=== PATIENT | male | born 1980 | race Caucasian/White ===

== ENCOUNTER 2017-01-04 07:15 | Day surgery (SDC) | payer BC ==
[~2017-01-04] VITALS: Ht 172.7 cm; Wt 63.4 kg
[2017-01-04] MEDS ORDERED: CYAN500T46 PO (07:59)
[2017-01-04] MEDS ORDERED: DIPH25CA6 PO (07:59)
[2017-01-04] MEDS ORDERED: [UNRECOGNIZED DRUG - OTHER] (07:59)
[2017-01-04] MEDS ORDERED: LORA0.5T PO (08:00)
[2017-01-04] MEDS ORDERED: GABA400C14 PO (08:00)
[2017-01-04] MEDS ORDERED: CHOL400T10 PO (08:04)
[2017-01-04] MEDS ORDERED: ACET500C3 PO (08:04)
[2017-01-04] MEDS ORDERED: TEST75GE TD (08:04)
[2017-01-04] MEDS ORDERED: ELVI1TAB3 PO (08:04)
[2017-01-04] MEDS ORDERED: TRAM100T27 PO (08:04)
[2017-01-04] MEDS ORDERED: BUPR150T6 PO (08:04)
[2017-01-04] MEDS ORDERED: NAPR275T83 PO (08:04)
[2017-01-04] MEDS ORDERED: CETRIZINE (08:04)
[2017-01-04] MEDS ORDERED: SULF500T5 PO (08:04)
[2017-01-04 08:06] VITALS: Ht 172.7 cm; Wt 63.4 kg
[2017-01-04] MEDS ORDERED: PROPOFOL 40 ML ONE (08:32)
[2017-01-04] MEDS ORDERED: MIDAZOLAM 1 MG/ML 2 ML INJ ONE (08:32)
[2017-01-04] MEDS ORDERED: LIDOCAINE 2% (SDV) 5 ML INJ ONE (08:32)
[2017-01-04 08:38] VITALS: BP 107/55; PULSE 58; RESP 16
[2017-01-04 10:06] VITALS: BP 96/58; PULSE 58; RESP 15
--- NOTE | 2017-01-04 10:35 | GILP ---
DATE OF PROCEDURE: PROCEDURE: Esophagogastroduodenoscopy. PREOPERATIVE DIAGNOSIS: The patient presenting with history of chronic vomiting, history of HIV, ru le out opportunistic infections, esophagitis, peptic ulcer disease. POSTOPERATIVE DIAGNOSES: 1. Diffuse erosive gastritis. 2. Minimal duodenitis. 3. Diffuse mild esophagitis. 4. Hiatal hernia. Biopsies were done as follows. DESCRIPTION OF PROCEDURE: After the informed written consent was obtained, the patient was asked to lie on the left lateral side. Intravenous anesthesia was given by anesthesiologist, Dr. Zaragoza. Whe n the patient became somnolent, the Olympus video upper endoscope was introduced into the oropharynx , then into the esophagus. Esophagus showed evidence of diffuse areas of erythema with no evidence of ulcers, no neoplasm. Random biopsies were obtained to rule out opportunistic infections. Small hiatal hernia was noted with reflux esophagitis. At this time, scope was advanced into the stomach. Stomach showed evidence of multiple erosions with no ulcers, no neoplasm. Three biopsies were obt ained from the antrum, the lesser curvature and the fundus to rule out H. pylori infection. Duodenu m showed evidence of duodenitis of milder degree in the bulb and the postbulbar area. Biopsies were done to rule out Giardia and celiac sprue. Scope at this time was withdrawn and no additional abno rmalities detected and the procedure was terminated. PLAN: Recommend proton pump inhibitor therapy. Dictated By: PRIYANKA HERNANDEZ MD NC/NTS Conf#: [id number] DID#: [id number] CC: Chuck Bowers MD;*End*
--- NOTE | 2017-01-04 10:52 | GILP ---
DATE OF PROCEDURE: PROCEDURE: Colonoscopy and biopsy. PREOPERATIVE DIAGNOSIS: Patient presenting with history of chronic diarrhea, history of Crohn's dis ease, rule out Crohn's disease, rule out ulcerative colitis. POSTOPERATIVE DIAGNOSIS: Proctitis of mild to moderate degree, the rest of the colon and terminal i leum appeared normal. Random biopsies were obtained. DESCRIPTION OF PROCEDURE: After informed written consent was obtained, the patient was asked to lie on the left lateral side. Intravenous anesthesia was given by anesthesiologist, Dr. Zaragoza. When th e patient became somnolent, Olympus video colonoscope was introduced into the rectum and scope was a dvanced all the way to the cecum and the terminal ileum. Terminal ileum appeared normal. Random bi opsies were obtained to rule out ileitis. Scope at this time was withdrawn from the terminal ileum and entire rest of the colon was examined thoroughly. No colitis noted. Random biopsies were obtai tereza and put in 2 bottles, one from the right colon, one from the left colon. The rectum showed evide nce of several areas of erythema with friability. Multiple biopsies were obtained to rule out infla mmatory bowel disease. Anal sphincter was found to be rather lax. Scope at this time was withdrawn and the procedure was terminated. PLAN: Recommend wait for the pathology report. Dictated By: YOUSUF HELLER/ROCÍO Conf#: [id number] DID#: [id number] CC: Chuck Bowers;*EndCC*
== END 2017-01-04 10:38 | disposition home or self-care (01) ==
LOC: GIL 07:15
PROVIDERS: ATTEND Internal Medicine Gastroenterology
DX: K29.60 Other gastritis without bleeding (principal); K20.8 Other esophagitis; K44.9 Diaphragmatic hernia without obstruction or gangrene; K62.89 Other specified diseases of anus and rectum; J44.9 Chronic obstructive pulmonary disease, unspecified; J45.909 Unspecified asthma, uncomplicated
CPT/HCPCS: 43239; 45380; 88305; 88312; J2250; Z7610

== ENCOUNTER 2017-01-06 18:03 | Emergency (ER) | payer BC ==
[~2017-01-06] VITALS: Ht 167.6 cm; Wt 64.0 kg
[~2017-01-06 18:03] MED LIST: ACET500C3 PO; BUPR150T6 PO; CETRIZINE; CHOL400T10 PO; CYAN500T46 PO; DIPH25CA6 PO; ELVI1TAB3 PO; GABA400C14 PO; LORA0.5T PO; NAPR275T83 PO; SULF500T5 PO; TEST75GE TD; TRAM100T27 PO; [UNRECOGNIZED DRUG - OTHER]
[2017-01-06 18:07] VITALS: Ht 167.6 cm; Wt 64.0 kg
[2017-01-06] MEDS ORDERED: KETOROLAC 30 MG INJ IM STA (20:24)
[2017-01-06] MEDS ORDERED: OXYC-279 PO ×2 (20:27→20:31)
[2017-01-06] MEDS ORDERED: LIDOCAINE/MYLANTA 40 ML BTL PO ONE (20:30)
--- NOTE | 2017-01-06 23:25 | ERD ---
ER Documentation Chief Complaint Date/Time DATE: 01/06/17 TIME: 23:22 Chief Complaint Complains of abdominal paun Hx of ulcerative colitis HPI 36-year-old man complains of abdominal pain similar multiple previous episodes. He states many years ago he was diagnosed with ulcerative colitis and recently with possible Crohn's disease. He underwent upper and lower endoscopy just a few days ago. He denies blood per rectum although states he has had continued diarrhea. He denies vomiting, no fevers or chills, no chest pain or shortness of breath. He has been using PPI therapy which was recently prescribed him but states he was not given any opioid or analgesic prescriptions. ROS All systems reviewed and are negative except as per history of present illness. Medications Home Meds Active Scripts Oxycodone HCl/Acetaminophen (Percocet 5-325 mg Tablet) 1 Each Tablet, 1 EACH PO TID for PAIN, #15 TAB Prov:ANTOINE MCNALLY MD 01/06/17 Oxycodone HCl/Acetaminophen (Percocet 5-325 mg Tablet) 1 Each Tablet, 1 EACH PO TID for PAIN, #15 TAB Prov:ANTOINE MCNALLY MD 01/06/17 Reported Medications Testosterone* (Androgel*) 1.62%-75gm Gel..rehabilitation engineer, 200 GM TD DAILY, EA 01/04/17 Tramadol Hcl* (Tramadol* ER) 100 Mg Tab.er.24h, 100 MG PO DAILY, #30 TAB 01/04/17 Sulfasalazine* (Sulfazine*) 500 Mg Tablet, 500 MG PO DAILY, TAB 01/04/17 Naproxen Sodium* (Naproxen*) 275 Mg Tablet, 275 MG PO Q8, TAB 01/04/17 Bupropion Hcl* (Bupropion XL*) 150 Mg Tab.er.24h, 150 MG PO DAILY, TAB.SA 01/04/17 Elviteg/Yesenia/Emtric/Tenofo Ala (Genvoya Tablet) 1 Each Tablet, 1 EACH PO, TAB 01/04/17 Cholecalciferol* (Vitamin D*) 400 Unit Tablet, 800 UNIT PO DAILY, TAB 01/04/17 Acetaminophen (Mapap) 500 Mg Capsule, 500 MG PO Q4H Y for PAIN, CAP 01/04/17 [Cetrizine] No Conflict Check 01/04/17 Lorazepam* (Lorazepam*) 0.5 Mg Tablet, 0.5 MG PO Q6 Y for ANXIETY, TAB 01/04/17 Gabapentin* (Gabapentin*) 400 Mg Capsule, 800 MG PO TID, #180 CAP 01/04/17 [Venlaxafine] No Conflict Check 01/04/17 Diphenhydramine Hcl* (Diphenhydramine Hcl*) 25 Mg Capsule, 25 MG PO Q6 Y for ITCHING, CAP 01/04/17 Cyanocobalamin* (Vitamin B12*) 500 Mcg Tab, 1000 MCG PO DAILY, TAB 01/04/17 Allergies Allergies: Coded Allergies: amoxicillin (Verified Allergy, Intermediate, 01/06/17) Uncoded Allergies: BEESTINGS (Allergy, Unknown, 01/06/17) PMhx/Soc Chronic abdominal pain, possible ulcerative colitis versus Crohn's disease, gastritis History of Surgery: Yes (LUNG WASHES X3, ELBOW SURGERY WITH METAL PINS) Anesthesia Reaction: No Hx Neurological Disorder: No Hx Respiratory Disorders: Yes (COPD, ASTHMA, EMPHESEMA) Hx Cardiac Disorders: Yes (HEART MURMUR) Hx Psychiatric Problems: Yes (ANXIETY, DEPRESSION) Hx Miscellaneous Medical Probl: Yes (HPV, HIV) Hx Alcohol Use: Yes (STOPPED IN MAR 2016) Hx Substance Use: Yes (MARIJUANA DAILY) Hx Tobacco Use: Yes (1 PACK WEEK) Smoking Status: Current some day smoker FmHx Family History: No diabetes Physical Exam Vitals Vital Signs Date Time Temp Pulse Resp B/P Pulse Ox O2 Delivery O2 Flow Rate FiO2 01/06/17 18:07 98.0 88 20 122/71 97 Physical Exam GENERAL: Well-developed, well-nourished, well-hydrated, in no apparent distress , looks nontoxic in appearance HEENT: Moist mucous membranes, pink conjunctiva, no cervical spine tenderness or step-off deformities, no goiter, no jaundice or icterus, extraocular movements intact without pain. No submandibular induration, and no pharyngeal erythema NEURO: Alert and oriented 3, cranial nerves II through XII intact bilaterally, pupils equal round reactive to light, no focal deficits or facial asymmetry, sensation intact distally Strength 5/5 in upper and lower extremities bilaterally CARDIAC: Regular rate and rhythm, no murmurs rubs or gallops LUNGS: Clear bilaterally no wheezing crackles or stridor ABDOMEN: Soft nontender, no guarding, no rigidity, no rebound, no psoas sign no obturator sign. Normoactive bowel sounds SKIN: Warm and dry to touch, no abrasions, contusions, or hematomas, no lacerations, no ecchymosis, no target lesions, and without ulcers EXTREMITIES: No clubbing cyanosis or edema, calves are bilaterally symmetrical, no Homans sign, no popliteal cord sign. Distal pulses equal and bilateral PSYCH: Normal affect without agitation or irritability Results 24 hrs Current Medications Medications (Trade) Dose Ordered Sig/Kal Route PRN Reason Start Time Stop Time Status Last Admin Dose Admin Ketorolac Tromethamine (Toradol) 30 mg ONCE STAT IM 01/06/17 20:24 01/06/17 20:25 DC 01/06/17 20:41 Miscellaneous Medication (Gi Cocktail (2)) 40 ml ONCE ONCE PO 01/06/17 20:30 01/06/17 20:31 DC 01/06/17 20:41 Procedures/MDM I reviewed the patient's recent GI reports, diagnosis was listed as proctitis, I told the patient to follow-up with his GI specialist for clarifying his diagnosis, it seems the patient is unsure about his official diagnosis. I administered Toradol 30 mg intramuscular injection and Maalox suspension 40 cc p.o. with good relief. I reviewed the patient's recent GI reports. Differential diagnoses considered, included but not limited to perforated bowel , bowel obstruction, appendicitis, cholecystitis, bowel obstruction, pyelonephritis, nephrolithiasis, cystitis, as well as metabolic, hematologic, and electrolyte abnormalities. As well as abscess, cellulitis, fractures, and dislocations. Patient feels much better at this time, and vital signs are normal, symptoms have improved. I did give strict instructions to return to the ED if symptoms continue or worsen, patient will otherwise follow-up with primary care physician. Patient understood instructions and agreed to plan. Disclaimer: Inadvertent spelling and grammatical errors are likely due to EHR/ dictation software use and do not reflect on the overall quality of patient care. Also, please note that the electronic time recorded on this note does not necessarily reflect the actual time of the patient encounter. Departure Diagnosis: Primary Impression: Proctitis Additional Impression: Abdominal pain Abdominal location: generalized Qualified Code: R10.84 - Generalized abdominal pain Condition: Good Patient Instructions: Colonoscopy Referrals: PRIYANKA HERNANDEZ MD, DAVID MD Jan 06, 2017 23:25
== END 2017-01-07 03:32 | disposition home or self-care (01) ==
LOC: E/R 18:03
DX: K62.89 Other specified diseases of anus and rectum (principal); R10.84 Generalized abdominal pain; J44.9 Chronic obstructive pulmonary disease, unspecified; J45.909 Unspecified asthma, uncomplicated; F17.210 Nicotine dependence, cigarettes, uncomplicated
CPT/HCPCS: 96372; 99284; J1885; Z7610

== ENCOUNTER 2017-08-26 16:58 | Emergency (ER) | END 2017-08-26 21:46 | disposition home or self-care (01) ==

== ENCOUNTER 2017-09-03 23:21 | Emergency (ER) | END 2017-09-04 03:10 | disposition left against medical advice (07) ==